=== PATIENT | female | born 1985 | race Caucasian/White ===

== ENCOUNTER 2016-10-23 15:03 | Emergency (ER) | payer OTHER ==
[~2016-10-23 15:03] MED LIST: CEFTIN500 MG PO; GABAPENTIN800 MG PO; LAMICTAL100 MG PO; NEURONTIN300 MG PO; NICOTINE T21 MG/24 H TOP; PERCOCET1 TA1 PO; SEROQUEL25 MG PO; ZITHROMAX500 MG PO
--- NOTE | 2016-10-23 15:33 | ED NURSING NOTES ---
Clinical Report - Nurses [facility] [address] [place] [address] 10/23/2016 15:04 Patient: MOSES GRISSOM TRIAGE Triage time 15:Oct 23 2016. Acuity: LEVEL 3. Chief Complaint: LEG PAIN (would like SW consult). Alert. No acute distress. SEPSIS SCREEN: Sepsis Screen. Negative (no infection suspected/documented). NESTOR COMA SCORE: Nestor Coma Scale: 15- eyes open spontaneously (4); best verbal response- oriented x 4 (5); best motor response- obeys commands (6). --15:23 Annetta Garcia R.N. 15:08 10/23/16. BP: 130/83. HR: 119. RR: 16. O2 saturation: 99%. Temp: 98.1 F. Pain level now: 11/14. --15:23 Annetta Garcia R.N. Weight: 62.5 kg stated. Height/Length: 59 inches Per Patient. BMI: 27.9. --15:22 Annetta Garcia R.N. Medications Adderall (15mg) Oral. Advair HFA Inhalation. Albuterol Sulfate Inhalation. Gabapentin Oral. LaMICtal Oral. --15:09 Annetta Garcia R.N. Allergies Abilify. Thorazine. --15:09 Annetta Garcia R.N. Antihistmines. --15:10 Annetta Garcia R.N. Antipsycotic medications. --15:10 Annetta Garcia R.N. History Arrived by EMS, and walking from home. Historian: patient. Treatment DISTRIBUTION CENTER ADMINISTRATOR: None. PAST MEDICAL HX: Immunizations: up-to-date. Last normal menstrual period was 2 weeks ago. Denies current . SOCIAL HX: Current every day heavy tobacco smoker (cigarette)- less than 1 pack per day. Occasional alcohol use. No drug use. No infectious disease exposure. SELF HARM ASSESSMENT: A self harm assessment was performed. The patient answered "no" to the question "Do you have thoughts of harming or killing yourself?". FALL RISK ASSESSMENT: Fall risk assessment completed. No fall risk identified. NUTRITIONAL RISK ASSESSMENT: The nutritional risk assessment revealed no deficiencies. FUNCTIONAL ASSESSMENT: Functional assessment: no impairments noted. LEARNING NEEDS ASSESSMENT: The learning needs assessment revealed no barriers. ABUSE ASSESSMENT: Abuse assessment: (pt states that she doesnt feel safe at home). ED physician notified. SKIN INTEGRITY ASSESSMENT: Skin integrity risk assessment completed. No skin integrity risk identified. --15:23 Annetta Garcia R.N. PROBLEMS: Sinus Tachycardia. Borderline personality disorder. ADHD - Attention Deficit Hyperactivity Disorder. Bipolar Disorder. Seizure. Pneumonia. Asthma. --15:10 Annetta Garcia R.N. ADDITIONAL SURGERIES: Ankle surgery. Tonsillectomy. --15:10 Annetta Garcia R.N. Interventions ID band on patient. To treatment room. --15:23 Annetta Garcia R.N. PHYSICAL ASSESSMENT Ambulatory to room. GENERAL / NEURO / PSYCH: Alert. Oriented X 4. Appears anxious. HEENT: No facial asymmetry noted. RESPIRATORY: Respirations not labored. GI / : Abdomen soft and nontender. SKIN: Skin is warm and dry. --15:24 Annetta Garcia R.N. NURSING PROGRESS NOTES Oxygen administered. Head of bed elevated. Reassurance given to the patient. Patient identifiers checked. Call light placed in reach. Side rails up x 1. Bed placed in lowest position. Brakes of bed on. --15:24 Annetta Garcia R.N. ( patient left ED notified Kan FLYNN and he indicated that we should leave her on the board a little bit and give her a chance to return.). --15:49 Annetta Garcia R.N. ( the SD exercise planner called back and stated that she will call [facility] and let them know the situation and see if she can reach her [place]ACK[place]ZIE social staff worker. DC exercise planner aware that the patient has left the hospital.). --15:56 Annetta Garcia R.N. ( patient returned to hospital and was sitting in waiting room . She agreed to return to ED until she gets her medication.). --16:18 Annetta Garcia R.N. 16:27 10/23/2016 Gabapentin PO Capsules 600 mg given. Allergies verified and confirmed 5 rights. --16:27 Annetta Garcia R.N. DISPOSITION / DISCHARGE Departure time: 16:40 Oct 23 2016. Condition at departure: unchanged. No learning barriers present. Discharge instructions provided and reviewed with the patient. Reviewed medication(s) side effects, precautions, dosing and course information. Prescription(s) given to the patient. Reviewed referral to a primary care physician. Patient verbalized understanding. Written instructions provided in Hungarian. The patient was discharged home. She left the Emergency Department ambulatory and via private vehicle. Patient driving. ( pt called [facility] for transportation home. pt advised that SW called [facility] and they are aware that she was here. pt advised to follow up with the SW from [facility]). FALL RISK ASSESSMENT: Fall risk assessment completed. No fall risk identified. --16:40 Annetta Garcia R.N. 16:41 10/23/16. BP: 124/73. HR: 119. RR: 16. O2 saturation: 98%. Pain level now: 6/10. Additional comments: notified Kan FLYNN of heart rate and he is OK with DC at this time. . --16:41 Annetta Garcia R.N. Locked/Released at 10/23/2016 17:05 by Annetta Garcia R.N.
--- NOTE | 2016-10-23 15:33 | ED ORDER SUMMARY ---
..... Patient: MOSES GRISSOM OrderSheet [facility] VisitID: [id number] [address] [place] [address] 31y, F Registration Date/Time: 10/23/2016 ORDER SHEET Weight: 62.5 kg (stated) Allergies: Abilify, Thorazine, Antihistmines, Antipsycotic medications GENERAL ORDERS: - (Please arrange for a mission planner. Thannk you.) (15:32 10/23/2016 JCoates) (15:42 Casa) MEDICATION ORDERS: - (Gabapentin 600 mg by mouth now. Thank you.) (15:24 10/23/2016 JCoates) (16:27 Halie Prasad) IV FLUIDS: ORDER SHEET NOTES: [Electronically signed by Annetta Garcia R.N. (17:05 10/23/2016)] [Electronically signed by Dru Champion (17:31 10/23/2016)] [Electronically locked/signed by Annetta Garcia R.N. (17:05 10/23/2016)]
--- NOTE | 2016-10-23 15:33 | ED NURSING NOTES ---
Clinical Report - Nurses [facility] [address] [place] [address] 10/23/2016 15:04 Patient: MOSES GRISSOM TRIAGE Triage time 15:Oct 23 2016. Acuity: LEVEL 3. Chief Complaint: LEG PAIN (would like SW consult). Alert. No acute distress. SEPSIS SCREEN: Sepsis Screen. Negative (no infection suspected/documented). NESTOR COMA SCORE: Nestor Coma Scale: 15- eyes open spontaneously (4); best verbal response- oriented x 4 (5); best motor response- obeys commands (6). --15:23 Annetta Garcia R.N. 15:08 10/23/16. BP: 130/83. HR: 119. RR: 16. O2 saturation: 99%. Temp: 98.1 F. Pain level now: 11/14. --15:23 Annetta Garcia R.N. Weight: 62.5 kg stated. Height/Length: 59 inches Per Patient. BMI: 27.9. --15:22 Annetta Garcia R.N. Medications Adderall (15mg) Oral. Advair HFA Inhalation. Albuterol Sulfate Inhalation. Gabapentin Oral. LaMICtal Oral. --15:09 Annetta Garcia R.N. Allergies Abilify. Thorazine. --15:09 Annetta Garcia R.N. Antihistmines. --15:10 Annetta Garcia R.N. Antipsycotic medications. --15:10 Annetta Garcia R.N. History Arrived by EMS, and walking from home. Historian: patient. Treatment GRAIN COMBINER: None. PAST MEDICAL HX: Immunizations: up-to-date. Last normal menstrual period was 2 weeks ago. Denies current . SOCIAL HX: Current every day heavy tobacco smoker (cigarette)- less than 1 pack per day. Occasional alcohol use. No drug use. No infectious disease exposure. SELF HARM ASSESSMENT: A self harm assessment was performed. The patient answered "no" to the question "Do you have thoughts of harming or killing yourself?". FALL RISK ASSESSMENT: Fall risk assessment completed. No fall risk identified. NUTRITIONAL RISK ASSESSMENT: The nutritional risk assessment revealed no deficiencies. FUNCTIONAL ASSESSMENT: Functional assessment: no impairments noted. LEARNING NEEDS ASSESSMENT: The learning needs assessment revealed no barriers. ABUSE ASSESSMENT: Abuse assessment: (pt states that she doesnt feel safe at home). ED physician notified. SKIN INTEGRITY ASSESSMENT: Skin integrity risk assessment completed. No skin integrity risk identified. --15:23 Annetta Garcia R.N. PROBLEMS: Sinus Tachycardia. Borderline personality disorder. ADHD - Attention Deficit Hyperactivity Disorder. Bipolar Disorder. Seizure. Pneumonia. Asthma. --15:10 Annetta Garcia R.N. ADDITIONAL SURGERIES: Ankle surgery. Tonsillectomy. --15:10 Annetta Garcia R.N. Interventions ID band on patient. To treatment room. --15:23 Annetta Garcia R.N. PHYSICAL ASSESSMENT Ambulatory to room. GENERAL / NEURO / PSYCH: Alert. Oriented X 4. Appears anxious. HEENT: No facial asymmetry noted. RESPIRATORY: Respirations not labored. GI / : Abdomen soft and nontender. SKIN: Skin is warm and dry. --15:24 Annetta Garcia R.N. NURSING PROGRESS NOTES Oxygen administered. Head of bed elevated. Reassurance given to the patient. Patient identifiers checked. Call light placed in reach. Side rails up x 1. Bed placed in lowest position. Brakes of bed on. --15:24 Annetta Garcia R.N. ( patient left ED notified Kan FLYNN and he indicated that we should leave her on the board a little bit and give her a chance to return.). --15:49 Annetta Garcia R.N. ( the ID order planner called back and stated that she will call [facility] and let them know the situation and see if she can reach her MACKENZIE manager social work. DC order planner aware that the patient has left the hospital.). --15:56 Annetta Garcia R.N. ( patient returned to hospital and was sitting in waiting room . She agreed to return to ED until she gets her medication.). --16:18 Annetta Garcia R.N. 16:27 10/23/2016 Gabapentin PO Capsules 600 mg given. Allergies verified and confirmed 5 rights. --16:27 Annetta Garcia R.N. DISPOSITION / DISCHARGE Departure time: 16:40 Oct 23 2016. Condition at departure: unchanged. No learning barriers present. Discharge instructions provided and reviewed with the patient. Reviewed medication(s) side effects, precautions, dosing and course information. Prescription(s) given to the patient. Reviewed referral to a primary care physician. Patient verbalized understanding. Written instructions provided in Khmer. The patient was discharged home. She left the Emergency Department ambulatory and via private vehicle. Patient driving. ( pt called [facility] for transportation home. pt advised that SW called [facility] and they are aware that she was here. pt advised to follow up with the SW from [facility]). FALL RISK ASSESSMENT: Fall risk assessment completed. No fall risk identified. --16:40 Annetta Garcia R.N. 16:41 10/23/16. BP: 124/73. HR: 119. RR: 16. O2 saturation: 98%. Pain level now: 6/10. Additional comments: notified Kan FLYNN of heart rate and he is OK with DC at this time. . --16:41 Annetta Garcia R.N. Locked/Released at 10/23/2016 17:05 by Annetta Garcia R.N.
--- NOTE | 2016-10-23 15:33 | ED CLINICAL REPORT ---
Clinical Report - Physicians/Mid Levels [facility] [address] [place] [address] 10/23/2016 15:04 Patient: MOSES GRISSOM Time Seen: 15:09 Oct 23 2016. Arrived- By ambulance. Historian- patient. HISTORY OF PRESENT ILLNESS Chief Complaint: Chronic right lower leg pain and numbness. This started about 2 years ago and is still present. The patient has had numbness, (Patient has a history of chronic bipolar disorder. Apparently she is well known to the paramedics as she frequently calls them. They were called to her house today and they brought her here and she seemed to be acting more bizarrely than usual. She says she has a long history of right lower leg pain and numbness. She apparently broke her ankle and had surgery 2 years ago and since then has had chronic pain. She takes gabapentin and lamotrigine as well as Adderall. She says she just got out of the hospital somewhere else and hasn't had her gabapentin, lamotrigine or Adderall for several days and she is anxious. She denies any suicidal or homicidal ideation. She denies any hallucinations at this time.). No weakness. Similar symptoms previously: Many times. Recent medical care: The patient was seen recently at another facility in the emergency department. REVIEW OF SYSTEMS No nausea, vomiting, skin rash or suicidal thoughts. She complains of pain on weight bearing and has had a sleep disorder. All systems otherwise negative, except as recorded above. PAST HISTORY See nurses notes. No history of diabetes mellitus. SOCIAL HISTORY Smoker- current status unknown. Alcohol use. No drug use. ADDITIONAL NOTES The nursing notes have been reviewed. PHYSICAL EXAM Appearance: Alert. No acute distress. Does not appear to be lethargic. Odor of alcohol is not present. Head: Head atraumatic. Neck: Normal inspection. Respiratory: No respiratory distress. Extremities: Extremities exhibit normal ROM. No lower extremity edema. Right leg: mild erythema and tenderness. Neurovascular intact distally. (Mild dry skin and erythema but no evidence of cellulitis, DVT or acute trauma. She has pain out of proportion to anywhere I touch. If distracted she does not feel pain.). No swelling, laceration, abrasion or ecchymosis. No lower extremity edema. Neuro: Alert. Verbal response is not abnormal. No motor deficit. No sensory deficit. Psych: Flat affect. Speech normal. No apparent hallucinations. PROGRESS AND PROCEDURES Course of Care: 16:01 10/23/16. Patient stable. She denies suicidal or homicidal ideation at this time. She denies hallucinations. I cannot say that she is an absolute threat to herself or anyone else at this time so no indication for involuntary admit. I agreed to give her a single dose of gabapentin now and then discharge her home. I would not refill her Adderall. I went to print out taper work and she apparently left the emergency department prior to getting discharge paperwork or her dose of gabapentin. Disposition: Condition: stable. Discharge decision based on the following: patient's condition is stable; patient is ambulatory; patient's exam is stable. CLINICAL IMPRESSION Chronic right lower leg pain. Chronic bipolar disorder. INSTRUCTIONS Rest at home today. No dietary restrictions. Warnings: Further evaluation is necessary in order to conduct further tests. It is very important to follow up with a physician. GENERAL WARNINGS: Return or contact your physician immediately if your condition worsens or changes unexpectedly, if not improving as expected, or if other problems arise. Specifically return if fever greater than 102 degrees F. Suicidal or homicidal ideation. Prescription Medications: Lamotrigine 200 mg tabs. Dispense five (5). No refills. (T 1 tab PO at bedtime.) Gabapentin 300 mg capsules. Dispense forty-five (45). No refill. (Take 600mg PO in the morning and the afternoon and take 900mg PO at bedtime.) Understanding of the discharge instructions verbalized by patient. Follow-up with: Follow up Wednesday in three days. Reason for referral: Follow up with [facility] on Wednesday as we discussed. (Electronically signed by Dru Champion, 10/23/2016 17:31)
--- NOTE | 2016-10-23 15:33 | ED ORDER SUMMARY ---
..... Patient: MOSES GRISSOM OrderSheet [facility] VisitID: [id number] [address] [place] [address] 31y, F Registration Date/Time: 10/23/2016 ORDER SHEET Weight: 62.5 kg (stated) Allergies: Abilify, Thorazine, Antihistmines, Antipsycotic medications GENERAL ORDERS: - (Please arrange for a flow floor attendant. Thannk you.) (15:32 10/23/2016 JCoates) (15:42 Casa) MEDICATION ORDERS: - (Gabapentin 600 mg by mouth now. Thank you.) (15:24 10/23/2016 JCoates) (16:27 Halie Prasad) IV FLUIDS: ORDER SHEET NOTES: [Electronically signed by Annetta Garcia R.N. (17:05 10/23/2016)] [Electronically signed by Dru Champion (17:31 10/23/2016)] [Electronically locked/signed by Annetta Garcia R.N. (17:05 10/23/2016)]
--- NOTE | 2016-10-23 15:33 | ED CLINICAL REPORT ---
Clinical Report - Physicians/Mid Levels [facility] [address] [place] [address] 10/23/2016 15:04 Patient: MOSES GRISSOM Time Seen: 15:09 Oct 23 2016. Arrived- By ambulance. Historian- patient. HISTORY OF PRESENT ILLNESS Chief Complaint: Chronic right lower leg pain and numbness. This started about 2 years ago and is still present. The patient has had numbness, (Patient has a history of chronic bipolar disorder. Apparently she is well known to the paramedics as she frequently calls them. They were called to her house today and they brought her here and she seemed to be acting more bizarrely than usual. She says she has a long history of right lower leg pain and numbness. She apparently broke her ankle and had surgery 2 years ago and since then has had chronic pain. She takes gabapentin and lamotrigine as well as Adderall. She says she just got out of the hospital somewhere else and hasn't had her gabapentin, lamotrigine or Adderall for several days and she is anxious. She denies any suicidal or homicidal ideation. She denies any hallucinations at this time.). No weakness. Similar symptoms previously: Many times. Recent medical care: The patient was seen recently at another facility in the emergency department. REVIEW OF SYSTEMS No nausea, vomiting, skin rash or suicidal thoughts. She complains of pain on weight bearing and has had a sleep disorder. All systems otherwise negative, except as recorded above. PAST HISTORY See nurses notes. No history of diabetes mellitus. SOCIAL HISTORY Smoker- current status unknown. Alcohol use. No drug use. ADDITIONAL NOTES The nursing notes have been reviewed. PHYSICAL EXAM Appearance: Alert. No acute distress. Does not appear to be lethargic. Odor of alcohol is not present. Head: Head atraumatic. Neck: Normal inspection. Respiratory: No respiratory distress. Extremities: Extremities exhibit normal ROM. No lower extremity edema. Right leg: mild erythema and tenderness. Neurovascular intact distally. (Mild dry skin and erythema but no evidence of cellulitis, DVT or acute trauma. She has pain out of proportion to anywhere I touch. If distracted she does not feel pain.). No swelling, laceration, abrasion or ecchymosis. No lower extremity edema. Neuro: Alert. Verbal response is not abnormal. No motor deficit. No sensory deficit. Psych: Flat affect. Speech normal. No apparent hallucinations. PROGRESS AND PROCEDURES Course of Care: 16:01 10/23/16. Patient stable. She denies suicidal or homicidal ideation at this time. She denies hallucinations. I cannot say that she is an absolute threat to herself or anyone else at this time so no indication for involuntary admit. I agreed to give her a single dose of gabapentin now and then discharge her home. I would not refill her Adderall. I went to print out taper work and she apparently left the emergency department prior to getting discharge paperwork or her dose of gabapentin. Disposition: Condition: stable. Discharge decision based on the following: patient's condition is stable; patient is ambulatory; patient's exam is stable. CLINICAL IMPRESSION Chronic right lower leg pain. Chronic bipolar disorder. INSTRUCTIONS Rest at home today. No dietary restrictions. Warnings: Further evaluation is necessary in order to conduct further tests. It is very important to follow up with a physician. GENERAL WARNINGS: Return or contact your physician immediately if your condition worsens or changes unexpectedly, if not improving as expected, or if other problems arise. Specifically return if fever greater than 102 degrees F. Suicidal or homicidal ideation. Prescription Medications: Lamotrigine 200 mg tabs. Dispense five (5). No refills. (T 1 tab PO at bedtime.) Gabapentin 300 mg capsules. Dispense forty-five (45). No refill. (Take 600mg PO in the morning and the afternoon and take 900mg PO at bedtime.) Understanding of the discharge instructions verbalized by patient. Follow-up with: Follow up Wednesday in three days. Reason for referral: Follow up with [facility] on Wednesday as we discussed. (Electronically signed by Dru Champion, 10/23/2016 17:31)
--- NOTE | 2016-10-23 17:31 | ED DISCHARGE INSTRUCTIONS ---
Patient: MOSES GRISSOM General Instructions [facility] VisitID: [id number] [place] [address] 31y, F Registration Date/Time: 10/23/2016 Chronic right lower leg pain. Chronic bipolar disorder. INSTRUCTIONS Rest at home today. No dietary restrictions. Warnings: Further evaluation is necessary in order to conduct further tests. It is very important to follow up with a physician. GENERAL WARNINGS: Return or contact your physician immediately if your condition worsens or changes unexpectedly, if not improving as expected, or if other problems arise. Specifically return if fever greater than 102 degrees F. Suicidal or homicidal ideation. Prescription Medications: Lamotrigine 200 mg tabs. Dispense five (5). No refills. (T 1 tab PO at bedtime.) Gabapentin 300 mg capsules. Dispense forty-five (45). No refill. (Take 600mg PO in the morning and the afternoon and take 900mg PO at bedtime.) Understanding of the discharge instructions verbalized by patient. Follow-up with: Follow up Wednesday in three days. Reason for referral: Follow up with [facility] on Wednesday as we discussed. ADDITIONAL INFORMATION Bipolar Disorder Bipolar disorder (formerly called manic depression) is an illness that causes strong mood swings between depression and jo. This can interfere with work and relationships. In a manic episode, you may think fast and do things quickly. It may seem like you are getting a lot done. At first, this may feel very good; but in the extreme this can lead to a lifestyle that is disorganized, chaotic, and includes risky behavior (spending sprees, sexual acting-out, or drug use). In later stages, it may affect eating (no interest in food) and sleeping (unable to sleep for days at a time). Speech may speed up and become difficult for others to understand. You may appear to others as if you are in your own world. In a depressive episode, you may feel a lack of interest in normal activities. Sometimes there is sadness or guilt without any clear reason. Thinking may become slow and there can be a lack energy or feeling of hopelessness. Some people have thoughts of harming themselves at this stage. Thoughts can even turn to suicide. Between these two phases you may actually feel okay. This does not mean that the illness is gone. People with this disorder will usually have to treat it all of their life. Medication and good care can greatly reduce the symptoms. The exact cause of this illness is unknown. However, there is a genetic link that makes a person more likely to get this problem. Also, the use of drugs such as speed (amphetamine) and cocaine increase the chances of this illness appearing. Home Care: Be sure to take your medicine even if you think you dont need it. Talk with your family about your thoughts and feelings. Follow Up with your doctor or therapist as directed by our staff. They can help you to find ways to improve your life. For more information: The [employer] [employer]ness www.alicia.org 672-636-7711. Get Prompt Medical Attention if any of the following occur: Feeling like your symptoms are getting worse (depression, agitation, excess energy) Unable to eat or sleep for more than 48 hours Feeling out of control (racing thoughts, poor concentration) Feeling like you want to harm yourself or another Being unable to care for yourself Myofascial Pain Syndrome: Fibrositis Your pain is caused by a state of chronic muscle tension. This condition is called by various names: myofascial pain, fibrositis and trigger point pain. This can also be due to mechanical stress (such as working at a computer terminal for long periods; or work that requires repetitive motions of the arms or hands) or emotional stress (such as problems on the job or in your personal life). Sometimes there is no obvious cause. The pain can occur in the area of the muscle spasm or at a site distant to it. For example, spasm of a neck muscle can cause headache. Spasm of the muscle near the shoulder blade can cause pain shooting down the arm. Home Care: Try to identify the factors that may be causing your problem and change them: If you feel thatemotional stressis a cause of your pain, learn methods to deal more effectively with the stress in your life. These may include regular exercise, muscle relaxation techniques, meditation or simply taking time out for yourself. Consult your doctor or go to a local bookstore and review the many books and tapes available on the subject of stress reduction. If you feel that physical stress is a cause for your pain, try to modify any poor work habits. You may use acetaminophen (Tylenol) or ibuprofen (Motrin, Advil) to control pain, unless another medicine was prescribed. [NOTE: If you have chronic liver or kidney disease or ever had a stomach ulcer or GI bleeding, talk with your doctor before using these medicines.] The use of heat to the muscle (hot compress or heating pad) will be helpful to reduce muscle spasm. Some persons get relief with ice packs. Apply an ice pack (crushed or cubed ice in a plastic bag, wrapped in a towel) for 20 minutes at a time as needed. Use the method that feels best to you. Massaging the trigger point and stretching out the muscleare an important parts of prevention and treatment. Trigger point massage can be done by first applying heat to the area to warm and prepare the muscle. Have someone apply steady thumb pressure directly on the knot in the muscle (the most tender point) for 30 seconds. Release the pressure, then massage the surrounding muscle. Repeat the process, applying more pressure to the trigger point each time. Do this up to the limit of pain. With each treatment, the trigger point should become less tender and the pain should decrease. You can apply local pressure to trigger points in the back by lying on the floor with a tennis ball under the trigger point. Follow Up with your doctor as advised or if not improving within the next week. It may be necessary for you to receive physical therapy if you do not respond to home treatment alone. Get Prompt Medical Attention if any of the following occur: If your trigger point is in the chest muscles, observe for pain that becomes more severe, lasts longer, or spreads into your shoulder/arm, neck or back; you develop trouble breathing, sweating, nausea or vomiting in association with chest pain If you develop weakness or numbness in an extremity If your pain worsens, regardless of its location Gabapentin Oral tablet What is this medicine? GABAPENTIN (GA ba pen tin) is used to control partial seizures in adults with epilepsy. It is also used to treat certain types of nerve pain. How should I use this medicine? Take this medicine by mouth. Swallow it with a drink of water. Follow the directions on the prescription label. If this medicine upsets your stomach, take it with food or milk. Take your medicine at regular intervals. Do not take it more often than directed. If you are directed to break the 600 or 800 mg tablets in half as part of your dose, the extra half tablet should be used for the next dose. If you have not used the extra half tablet within 3 days, it should be thrown away. A special MedGuide will be given to you by the pharmacist with each prescription and refill. Be sure to read this information carefully each time. Talk to your lamination builder regarding the use of this medicine in children. Special care may be needed. What side effects may I notice from receiving this medicine? Side effects that you should report to your doctor or health ambulatory care coordinator as soon as possible: allergic reactions like skin rash, itching or hives, swelling of the face, lips, or tongue worsening of mood, thoughts or actions of suicide or dying Side effects that usually do not require medical attention (report to your doctor or health ambulatory care coordinator if they continue or are bothersome): constipation difficulty walking or controlling muscle movements dizziness nausea slurred speech tiredness tremors weight gain What may interact with this medicine? Do not take this medicine with any of the following medications: other gabapentin products This medicine may also interact with the following medications: alcohol antacids antihistamines for allergy, cough and cold certain medicines for anxiety or sleep certain medicines for depression or psychotic disturbances homatropine; hydrocodone naproxen narcotic medicines (opiates) for pain phenothiazines like chlorpromazine, mesoridazine, prochlorperazine, thioridazine What if I miss a dose? If you miss a dose, take it as soon as you can. If it is almost time for your next dose, take only that dose. Do not take double or extra doses. Where should I keep my medicine? Keep out of reach of children. Store at room temperature between 15 and 30 degrees C (59 and 86 degrees F). Throw away any unused medicine after the expiration date. What should I tell my health care provider before I take this medicine? They need to know if you have any of these conditions: kidney disease suicidal thoughts, plans, or attempt; a previous suicide attempt by you or a family member an unusual or allergic reaction to gabapentin, other medicines, foods, dyes, or preservatives or trying to get breast-feeding What should I watch for while using this medicine? Visit your doctor or health ambulatory care coordinator for regular checks on your progress. You may want to keep a record at home of how you feel your condition is responding to treatment. You may want to share this information with your doctor or health ambulatory care coordinator at each visit. You should contact your doctor or health ambulatory care coordinator if your seizures get worse or if you have any new types of seizures. Do not stop taking this medicine or any of your seizure medicines unless instructed by your doctor or health ambulatory care coordinator. Stopping your medicine suddenly can increase your seizures or their severity. Wear a medical identification bracelet or chain if you are taking this medicine for seizures, and carry a card that lists all your medications. You may get drowsy, dizzy, or have blurred vision. Do not drive, use machinery, or do anything that needs mental alertness until you know how this medicine affects you. To reduce dizzy or fainting spells, do not sit or stand up quickly, especially if you are an older patient. Alcohol can increase drowsiness and dizziness. Avoid alcoholic drinks. Your mouth may get dry. Chewing sugarless gum or sucking hard candy, and drinking plenty of water will help. The use of this medicine may increase the chance of suicidal thoughts or actions. Pay special attention to how you are responding while on this medicine. Any worsening of mood, or thoughts of suicide or dying should be reported to your health ambulatory care coordinator right away. Women who become while using this medicine may enroll in the [place] [employer] Registry by calling . This registry collects information about the safety of antiepileptic drug use during . You have been given the following additional information: Bipolar Disorder Myofascial Pain Syndrome Gabapentin Oral tablet Rest at home today. (Electronically signed by Dru Champion, 10/23/2016 17:31)
--- NOTE | 2016-10-23 17:31 | ED MAR SUMMARY ---
..... Medication Administration Record [facility] [address] [place] [address] Patient: MOSES GRISSOM Visit ID: [id number] 31y, F Weight: 62.5 kg Height/Length: 59 in BMI: 27.9 ALLERGIES: Antipsycotic medications, Antihistmines, Abilify, Thorazine Given 16:27 10/23/2016 Annetta Garcia R.N. Medication Administered: GABAPENTIN [PO], Dose: 600 mg Capsules PO. Medication Ordered: - (Gabapentin 600 mg by mouth now. Thank you.).
--- NOTE | 2016-10-23 17:31 | ED MED RECONCILIATION SUMMARY ---
Patient: MOSES GRISSOM Medication Reconciliation Report [facility] VisitID: [id number] [address] [place] [address] 31y, F Registration Date/Time: 10/23/2016 Weight: 62.5 kg Height/Length: 59 in. BMI: 27.9 ALLERGIES: Abilify, Antihistmines, Antipsycotic medications, Thorazine The patient's Home Medications are listed below: THE FOLLOWING MEDICATIONS NEED TO BE RECONCILED: Adderall (15mg) Oral Advair HFA Inhalation Albuterol Sulfate Inhalation Gabapentin Oral LaMICtal Oral The source(s) of the original Home Medication information: Not obtained. The following Medications were given to the patient in the Emergency Department: Gabapentin [PO] PO 600 mg, administered: 10/23/2016 4:27:00 PM The following Medications were prescribed to the patient: Lamotrigine 200 mg tabs. Dispense five (5). No refills.(T 1 tab PO at bedtime.) -- Dru Champion Gabapentin 300 mg capsules. Dispense forty-five (45). No refill.(Take 600mg PO in the morning and the afternoon and take 900mg PO at bedtime.) -- Dru Champion
--- NOTE | 2016-10-23 17:31 | ED MED RECONCILIATION SUMMARY ---
Patient: MOSES GRISSOM Medication Reconciliation Report [facility] VisitID: [id number] [address] [place] [address] 31y, F Registration Date/Time: 10/23/2016 Weight: 62.5 kg Height/Length: 59 in. BMI: 27.9 ALLERGIES: Abilify, Antihistmines, Antipsycotic medications, Thorazine The patient's Home Medications are listed below: THE FOLLOWING MEDICATIONS NEED TO BE RECONCILED: Adderall (15mg) Oral Advair HFA Inhalation Albuterol Sulfate Inhalation Gabapentin Oral LaMICtal Oral The source(s) of the original Home Medication information: Not obtained. The following Medications were given to the patient in the Emergency Department: Gabapentin [PO] PO 600 mg, administered: 10/23/2016 4:27:00 PM The following Medications were prescribed to the patient: Lamotrigine 200 mg tabs. Dispense five (5). No refills.(T 1 tab PO at bedtime.) -- Dru Champion Gabapentin 300 mg capsules. Dispense forty-five (45). No refill.(Take 600mg PO in the morning and the afternoon and take 900mg PO at bedtime.) -- Dru Champion
--- NOTE | 2016-10-23 17:31 | ED DISCHARGE INSTRUCTIONS ---
Patient: MOSES GRISSOM General Instructions [facility] VisitID: [id number] [place] [address] 31y, F Registration Date/Time: 10/23/2016 Chronic right lower leg pain. Chronic bipolar disorder. INSTRUCTIONS Rest at home today. No dietary restrictions. Warnings: Further evaluation is necessary in order to conduct further tests. It is very important to follow up with a physician. GENERAL WARNINGS: Return or contact your physician immediately if your condition worsens or changes unexpectedly, if not improving as expected, or if other problems arise. Specifically return if fever greater than 102 degrees F. Suicidal or homicidal ideation. Prescription Medications: Lamotrigine 200 mg tabs. Dispense five (5). No refills. (T 1 tab PO at bedtime.) Gabapentin 300 mg capsules. Dispense forty-five (45). No refill. (Take 600mg PO in the morning and the afternoon and take 900mg PO at bedtime.) Understanding of the discharge instructions verbalized by patient. Follow-up with: Follow up Wednesday in three days. Reason for referral: Follow up with [facility] on Wednesday as we discussed. ADDITIONAL INFORMATION Bipolar Disorder Bipolar disorder (formerly called manic depression) is an illness that causes strong mood swings between depression and jo. This can interfere with work and relationships. In a manic episode, you may think fast and do things quickly. It may seem like you are getting a lot done. At first, this may feel very good; but in the extreme this can lead to a lifestyle that is disorganized, chaotic, and includes risky behavior (spending sprees, sexual acting-out, or drug use). In later stages, it may affect eating (no interest in food) and sleeping (unable to sleep for days at a time). Speech may speed up and become difficult for others to understand. You may appear to others as if you are in your own world. In a depressive episode, you may feel a lack of interest in normal activities. Sometimes there is sadness or guilt without any clear reason. Thinking may become slow and there can be a lack energy or feeling of hopelessness. Some people have thoughts of harming themselves at this stage. Thoughts can even turn to suicide. Between these two phases you may actually feel okay. This does not mean that the illness is gone. People with this disorder will usually have to treat it all of their life. Medication and good care can greatly reduce the symptoms. The exact cause of this illness is unknown. However, there is a genetic link that makes a person more likely to get this problem. Also, the use of drugs such as speed (amphetamine) and cocaine increase the chances of this illness appearing. Home Care: Be sure to take your medicine even if you think you dont need it. Talk with your family about your thoughts and feelings. Follow Up with your doctor or therapist as directed by our staff. They can help you to find ways to improve your life. For more information: The National [employer] on Mental Illness www.alicia.org 734-359-0926. Get Prompt Medical Attention if any of the following occur: Feeling like your symptoms are getting worse (depression, agitation, excess energy) Unable to eat or sleep for more than 48 hours Feeling out of control (racing thoughts, poor concentration) Feeling like you want to harm yourself or another Being unable to care for yourself Myofascial Pain Syndrome: Fibrositis Your pain is caused by a state of chronic muscle tension. This condition is called by various names: myofascial pain, fibrositis and trigger point pain. This can also be due to mechanical stress (such as working at a computer terminal for long periods; or work that requires repetitive motions of the arms or hands) or emotional stress (such as problems on the job or in your personal life). Sometimes there is no obvious cause. The pain can occur in the area of the muscle spasm or at a site distant to it. For example, spasm of a neck muscle can cause headache. Spasm of the muscle near the shoulder blade can cause pain shooting down the arm. Home Care: Try to identify the factors that may be causing your problem and change them: If you feel thatemotional stressis a cause of your pain, learn methods to deal more effectively with the stress in your life. These may include regular exercise, muscle relaxation techniques, meditation or simply taking time out for yourself. Consult your doctor or go to a local bookstore and review the many books and tapes available on the subject of stress reduction. If you feel that physical stress is a cause for your pain, try to modify any poor work habits. You may use acetaminophen (Tylenol) or ibuprofen (Motrin, Advil) to control pain, unless another medicine was prescribed. [NOTE: If you have chronic liver or kidney disease or ever had a stomach ulcer or GI bleeding, talk with your doctor before using these medicines.] The use of heat to the muscle (hot compress or heating pad) will be helpful to reduce muscle spasm. Some persons get relief with ice packs. Apply an ice pack (crushed or cubed ice in a plastic bag, wrapped in a towel) for 20 minutes at a time as needed. Use the method that feels best to you. Massaging the trigger point and stretching out the muscleare an important parts of prevention and treatment. Trigger point massage can be done by first applying heat to the area to warm and prepare the muscle. Have someone apply steady thumb pressure directly on the knot in the muscle (the most tender point) for 30 seconds. Release the pressure, then massage the surrounding muscle. Repeat the process, applying more pressure to the trigger point each time. Do this up to the limit of pain. With each treatment, the trigger point should become less tender and the pain should decrease. You can apply local pressure to trigger points in the back by lying on the floor with a tennis ball under the trigger point. Follow Up with your doctor as advised or if not improving within the next week. It may be necessary for you to receive physical therapy if you do not respond to home treatment alone. Get Prompt Medical Attention if any of the following occur: If your trigger point is in the chest muscles, observe for pain that becomes more severe, lasts longer, or spreads into your shoulder/arm, neck or back; you develop trouble breathing, sweating, nausea or vomiting in association with chest pain If you develop weakness or numbness in an extremity If your pain worsens, regardless of its location Gabapentin Oral tablet What is this medicine? GABAPENTIN (GA ba pen tin) is used to control partial seizures in adults with epilepsy. It is also used to treat certain types of nerve pain. How should I use this medicine? Take this medicine by mouth. Swallow it with a drink of water. Follow the directions on the prescription label. If this medicine upsets your stomach, take it with food or milk. Take your medicine at regular intervals. Do not take it more often than directed. If you are directed to break the 600 or 800 mg tablets in half as part of your dose, the extra half tablet should be used for the next dose. If you have not used the extra half tablet within 3 days, it should be thrown away. A special MedGuide will be given to you by the pharmacist with each prescription and refill. Be sure to read this information carefully each time. Talk to your executive sales manager regarding the use of this medicine in children. Special care may be needed. What side effects may I notice from receiving this medicine? Side effects that you should report to your doctor or health intensive care unit registered nurse as soon as possible: allergic reactions like skin rash, itching or hives, swelling of the face, lips, or tongue worsening of mood, thoughts or actions of suicide or dying Side effects that usually do not require medical attention (report to your doctor or health intensive care unit registered nurse if they continue or are bothersome): constipation difficulty walking or controlling muscle movements dizziness nausea slurred speech tiredness tremors weight gain What may interact with this medicine? Do not take this medicine with any of the following medications: other gabapentin products This medicine may also interact with the following medications: alcohol antacids antihistamines for allergy, cough and cold certain medicines for anxiety or sleep certain medicines for depression or psychotic disturbances homatropine; hydrocodone naproxen narcotic medicines (opiates) for pain phenothiazines like chlorpromazine, mesoridazine, prochlorperazine, thioridazine What if I miss a dose? If you miss a dose, take it as soon as you can. If it is almost time for your next dose, take only that dose. Do not take double or extra doses. Where should I keep my medicine? Keep out of reach of children. Store at room temperature between 15 and 30 degrees C (59 and 86 degrees F). Throw away any unused medicine after the expiration date. What should I tell my health care provider before I take this medicine? They need to know if you have any of these conditions: kidney disease suicidal thoughts, plans, or attempt; a previous suicide attempt by you or a family member an unusual or allergic reaction to gabapentin, other medicines, foods, dyes, or preservatives or trying to get breast-feeding What should I watch for while using this medicine? Visit your doctor or health intensive care unit registered nurse for regular checks on your progress. You may want to keep a record at home of how you feel your condition is responding to treatment. You may want to share this information with your doctor or health intensive care unit registered nurse at each visit. You should contact your doctor or health intensive care unit registered nurse if your seizures get worse or if you have any new types of seizures. Do not stop taking this medicine or any of your seizure medicines unless instructed by your doctor or health intensive care unit registered nurse. Stopping your medicine suddenly can increase your seizures or their severity. Wear a medical identification bracelet or chain if you are taking this medicine for seizures, and carry a card that lists all your medications. You may get drowsy, dizzy, or have blurred vision. Do not drive, use machinery, or do anything that needs mental alertness until you know how this medicine affects you. To reduce dizzy or fainting spells, do not sit or stand up quickly, especially if you are an older patient. Alcohol can increase drowsiness and dizziness. Avoid alcoholic drinks. Your mouth may get dry. Chewing sugarless gum or sucking hard candy, and drinking plenty of water will help. The use of this medicine may increase the chance of suicidal thoughts or actions. Pay special attention to how you are responding while on this medicine. Any worsening of mood, or thoughts of suicide or dying should be reported to your health intensive care unit registered nurse right away. Women who become while using this medicine may enroll in the [place] Drug Registry by calling . This registry collects information about the safety of antiepileptic drug use during . You have been given the following additional information: Bipolar Disorder Myofascial Pain Syndrome Gabapentin Oral tablet Rest at home today. (Electronically signed by Dru Champion, 10/23/2016 17:31)
--- NOTE | 2016-10-23 17:31 | ED MAR SUMMARY ---
..... Medication Administration Record [facility] [address] [place] [address] Patient: MOSES GRISSOM Visit ID: [id number] 31y, F Weight: 62.5 kg Height/Length: 59 in BMI: 27.9 ALLERGIES: Antipsycotic medications, Antihistmines, Abilify, Thorazine Given 16:27 10/23/2016 Annetta Garcia R.N. Medication Administered: GABAPENTIN [PO], Dose: 600 mg Capsules PO. Medication Ordered: - (Gabapentin 600 mg by mouth now. Thank you.).
== END 2016-10-23 16:42 | disposition home or self-care (01) ==
LOC: ED SRH 15:03
DX: M79.604 Pain in right leg (principal); G89.29 Other chronic pain; F31.9 Bipolar disorder, unspecified; Z88.8 Allergy status to other drugs, medicaments and biological substances

== ENCOUNTER 2016-12-02 19:48 | Emergency (ER) | payer OTHER ==
--- NOTE | 2016-12-03 15:07 | ED CLINICAL REPORT ---
Clinical Report - Physicians/Mid Levels [facility] [address] [place] [address] 12/02/2016 19:50 Patient: MOSES GRISSOM Time Seen: 20:07 Dec 02 2016. Arrived- By private vehicle. Not in custody. Historian- patient. CPT: ER phys charges level 5 (#[id number]). HISTORY OF PRESENT ILLNESS Chief Complaint: SUICIDAL ATTEMPT and (desire to be struck by a moving vehicle on the road.). This started just prior to arrival. No situational problems. (Patient earlier this afternoon departed in a steady gait to the wait room on her own accord, after denying to my self and RN about no SI/HI. She was in the lobby and we phoned her mom as well as transport for home, she was on the phone with such for 30 min then decided to walk out into the cross walk and stand, and was found by another RN off shift, stating she wanted to get hit by a car. She eloped prior to her complete lab work up, however was found to have negative cbc/ us. After her leave etoh returned and she is intoxicated.). Has had suicidal thoughts but been sleeping or not been depressed. The symptoms are described as moderate. REVIEW OF SYSTEMS No headache, chest pain, vomiting, diarrhea or fever. No sore throat or cough. All systems otherwise negative, except as recorded above. PAST HISTORY Medications: LaMICtal Oral. Adderall (15mg) Oral. Advair HFA Inhalation. Albuterol Sulfate Inhalation. Gabapentin Oral. Allergies: Abilify. Antihistmines. Antipsycotic medications. Thorazine. SOCIAL HISTORY Former smoker. Alcohol use. History of drug use: marijuana. Has place to stay. ADDITIONAL NOTES The nursing notes have been reviewed. PHYSICAL EXAM Vital Signs: 12/02/2016 19:50 BP: 162/100. HR: 142. RR: 28. O2 saturation: 99%. Temp: 97.7 F. Appearance: Alert. No acute distress. Appearance is normal. No apparent distress. Eyes: Pupils equal, round and reactive to light. Neck: Normal inspection. No lymphadenopathy. CVS: Normal heart rate and rhythm. Heart sounds normal. Respiratory: Breath sounds normal. Chest nontender. Abdomen: Soft. Back: No tenderness. Skin: Skin warm. Normal skin color. Extremities: Extremities exhibit normal ROM. Psych / Neuro: Speech normal. Cognition normal. Thought process normal. She expresses suicidal thoughts and a specific plan. Cranial nerves normal (as tested). No cerebellar findings. Normal gait. No motor deficit. No sensory deficit. Reflexes normal. LABS, X-RAYS, AND EKG Laboratory Tests: Urine Drug Screen: (KEON: 12/02/2016 18:32) ( MsgRcvd 12/02/2016 21:08) Final results Test Result Flag Units (Reference) AMPHETAMINE/METHAMPHETAMINE NEGATIVE (NEGATIVE) BARBITURATE NEGATIVE (NEGATIVE) BENZODIAZEPINE NEGATIVE (NEGATIVE) CANNABINOID NEGATIVE (NEGATIVE) COCAINE NEGATIVE (NEGATIVE) ECSTASY NEGATIVE (NEGATIVE) METHADONE NEGATIVE (NEGATIVE) OPIATE NEGATIVE (NEGATIVE) The urine drug screen is a qualitative screening test fordrug overdose and abuse. All screen results should beconsidered as presumptive.Drugs screened for are as follows:BenzodiazepinesCocaineAmphetamines/MetamphetaminesTHC (Tetrahydrocannabinol)OpiatesBarbituratesEcstasyMethadonePositive results are unconfirmed. For confirmation, notifythe lab for the specimen to be sent to the reference lab.All confirmations must be performed by a differentmethodology.The ingestion of natural herbal and plant productscontaining Ephedra/Ephedra metabolites can produce in urineone or more substances capable of cross reacting withamphetamine/methamphetamine immunoassays. These testsprovide a preliminary result only. A more specificalternative chemical method must be used to obtain aconfirmed analytical result. Ethyl Alcohol: (KEON: 12/02/2016 20:55) ( MsgRcvd 12/02/2016 21:26) Final results Test Result Flag Units (Reference) ETHYL ALCOHOL 179 H mg/dL (3-10) . PROGRESS AND PROCEDURES Course of Care: Pt tearful, at times anxious, she does not want to be home with the bugs, and at this time was in the road desiring to be struck by car, police did arrive and escorted her to the room and signed involuntary papers for her. She was placed in restraints as she desired to leave, and was unable to be cooperative. She is intoxicated, will await for her to sober. Previous labs completed on her earlier visit in the day. End of shift care transferred to DR. Stoll 23:00 ESW has bed at 2100 at [facility] today. Assumed care at [address] Stoll and observed the patient during my shift. Pt was cooperative and at times anxious and required two doses of ativan 1 mg po. [facility] has called and delayed transport from 2100 to 0 and now 2229. Pt is stable . She is no longer intoxicated. Patient is stable. Patient/family counseled. [facility] 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 No psychosis induced by the abuse of methamphetamines or cannabis. Suicide attempt. Substance abuse problems: abuse of alcohol. Suicide attempt. (Electronically signed by Rodolfo Pinedo MD 12/04/2016 11:41) Addenda for YULI GRISSOMILLA Leilani VisitID: [id number] Date: 12/02/2016 12/03/2016 22:52 2245 report called to JOSE Ramirez at [facility] (Electronically signed by Keely Tellez R.N. - 12/03/2016 22:52)
--- NOTE | 2016-12-03 15:07 | ED CLINICAL REPORT ---
Clinical Report - Physicians/Mid Levels [facility] [address] [place] [address] 12/02/2016 19:50 Patient: MOSES GRISSOM Time Seen: 20:07 Dec 02 2016. Arrived- By private vehicle. Not in custody. Historian- patient. CPT: ER phys charges level 5 (#[id number]). HISTORY OF PRESENT ILLNESS Chief Complaint: SUICIDAL ATTEMPT and (desire to be struck by a moving vehicle on the road.). This started just prior to arrival. No situational problems. (Patient earlier this afternoon departed in a steady gait to the wait room on her own accord, after denying to my self and RN about no SI/HI. She was in the lobby and we phoned her mom as well as transport for home, she was on the phone with such for 30 min then decided to walk out into the cross walk and stand, and was found by another RN off shift, stating she wanted to get hit by a car. She eloped prior to her complete lab work up, however was found to have negative cbc/ us. After her leave etoh returned and she is intoxicated.). Has had suicidal thoughts but been sleeping or not been depressed. The symptoms are described as moderate. REVIEW OF SYSTEMS No headache, chest pain, vomiting, diarrhea or fever. No sore throat or cough. All systems otherwise negative, except as recorded above. PAST HISTORY Medications: LaMICtal Oral. Adderall (15mg) Oral. Advair HFA Inhalation. Albuterol Sulfate Inhalation. Gabapentin Oral. Allergies: Abilify. Antihistmines. Antipsycotic medications. Thorazine. SOCIAL HISTORY Former smoker. Alcohol use. History of drug use: marijuana. Has place to stay. ADDITIONAL NOTES The nursing notes have been reviewed. PHYSICAL EXAM Vital Signs: 12/02/2016 19:50 BP: 162/100. HR: 142. RR: 28. O2 saturation: 99%. Temp: 97.7 F. Appearance: Alert. No acute distress. Appearance is normal. No apparent distress. Eyes: Pupils equal, round and reactive to light. Neck: Normal inspection. No lymphadenopathy. CVS: Normal heart rate and rhythm. Heart sounds normal. Respiratory: Breath sounds normal. Chest nontender. Abdomen: Soft. Back: No tenderness. Skin: Skin warm. Normal skin color. Extremities: Extremities exhibit normal ROM. Psych / Neuro: Speech normal. Cognition normal. Thought process normal. She expresses suicidal thoughts and a specific plan. Cranial nerves normal (as tested). No cerebellar findings. Normal gait. No motor deficit. No sensory deficit. Reflexes normal. LABS, X-RAYS, AND EKG Laboratory Tests: Urine Drug Screen: (KEON: 12/02/2016 18:32) ( MsgRcvd 12/02/2016 21:08) Final results Test Result Flag Units (Reference) AMPHETAMINE/METHAMPHETAMINE NEGATIVE (NEGATIVE) BARBITURATE NEGATIVE (NEGATIVE) BENZODIAZEPINE NEGATIVE (NEGATIVE) CANNABINOID NEGATIVE (NEGATIVE) COCAINE NEGATIVE (NEGATIVE) ECSTASY NEGATIVE (NEGATIVE) METHADONE NEGATIVE (NEGATIVE) OPIATE NEGATIVE (NEGATIVE) The urine drug screen is a qualitative screening test fordrug overdose and abuse. All screen results should beconsidered as presumptive.Drugs screened for are as follows:BenzodiazepinesCocaineAmphetamines/MetamphetaminesTHC (Tetrahydrocannabinol)OpiatesBarbituratesEcstasyMethadonePositive results are unconfirmed. For confirmation, notifythe lab for the specimen to be sent to the reference lab.All confirmations must be performed by a differentmethodology.The ingestion of natural herbal and plant productscontaining Ephedra/Ephedra metabolites can produce in urineone or more substances capable of cross reacting withamphetamine/methamphetamine immunoassays. These testsprovide a preliminary result only. A more specificalternative chemical method must be used to obtain aconfirmed analytical result. Ethyl Alcohol: (KEON: 12/02/2016 20:55) ( MsgRcvd 12/02/2016 21:26) Final results Test Result Flag Units (Reference) ETHYL ALCOHOL 179 H mg/dL (3-10) . PROGRESS AND PROCEDURES Course of Care: Pt tearful, at times anxious, she does not want to be home with the bugs, and at this time was in the road desiring to be struck by car, police did arrive and escorted her to the room and signed involuntary papers for her. She was placed in restraints as she desired to leave, and was unable to be cooperative. She is intoxicated, will await for her to sober. Previous labs completed on her earlier visit in the day. End of shift care transferred to DR. Stoll 23:00 ESW has bed at 2100 at [place] today. Assumed care at [address] Stoll and observed the patient during my shift. Pt was cooperative and at times anxious and required two doses of ativan 1 mg po. [facility] has called and delayed transport from 2100 to 0 and now 2229. Pt is stable . She is no longer intoxicated. Patient is stable. Patient/family counseled. Disposition: Transferred to [facility]. 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 No psychosis induced by the abuse of methamphetamines or cannabis. Suicide attempt. Substance abuse problems: abuse of alcohol. Suicide attempt. (Electronically signed by Rodolfo Pinedo MD 12/04/2016 11:41) Addenda for YULI GRISSOMILLA Leilani VisitID: [id number] Date: 12/02/2016 12/03/2016 22:52 2245 report called to JOSE Ramirez at [facility] (Electronically signed by Keely Tellez R.N. - 12/03/2016 22:52)
--- NOTE | 2016-12-03 15:08 | ED ORDER SUMMARY ---
..... Patient: MOSES GRISSOM OrderSheet [facility] VisitID: [id number] [address] [place] [address] 31y, F Registration Date/Time: 12/02/2016 ORDER SHEET Weight: 62.5 kg (stated) Allergies: Abilify, Antihistmines, Antipsycotic medications, Thorazine GENERAL ORDERS: Ethyl Alcohol Urgent (20:05 12/02/2016 EKoroleva P.A.-C) (Ack 20:12 [employer] ER Science Editor) (20:41 DDean R.N.) Urine Drug Screen Urgent (20:05 12/02/2016 EKoroleva P.A.-C) (Ack 20:12 [employer] ER Science Editor) (20:41 DDean R.N.) MEDICATION ORDERS: Zofran ODT PO 4 mg (NOW) (20:07 12/02/2016 EKoroleva P.A.-C) (21:01 DDean R.N.) Ativan PO 1 mg (NOW) (23:45 12/02/2016 DDean R.N. verbal order read back to Shama KELLER) (Ack 23:45 DDean R.N.) (11:41 DDean R.N.) Ativan PO 1 mg (HIGH ALERT MEDICATION, NOW) (03:17 12/03/2016 Shama KELLER) (3:59 RMarsden R.N.) Nicotine Topical 21 mg (NOW) (06:09 12/03/2016 RMarsden R.N. verbal order read back to Shama KELLER) (6:09 RMarsden R.N.) Verbal order read back and verified Zofran ODT PO 4 mg (NOW) (07:42 12/03/2016 LSullivan R.N. verbal order read back to Shama KELLER) (7:43 LSullivan R.N.) Tylenol PO 650 mg (NOW) (07:43 12/03/2016 LSullivan R.N. verbal order read back to Shama KELLER) (7:44 LSullivan R.N.) Ativan PO 1 mg (HIGH ALERT MEDICATION, NOW) (09:02 12/03/2016 Shama KELLER) (9:26 LSullivan R.N.) Ativan PO 1 mg (NOW) (13:02 12/03/2016 Ashley KELLER) (13:06 Jennyen R.N.) Ativan PO 1 mg (NOW) (17:38 12/03/2016 DDean R.N. verbal order read back to Ashley KELLER) (17:38 DDean R.N.) Zofran ODT PO 4 mg (NOW) (22:16 12/03/2016 DDean R.N. verbal order read back to Ashley KELLER) (22:18 DDean R.N.) Ativan PO 0.5 mg (NOW) (22:17 12/03/2016 DDeaseth R.N. verbal order read back to Ashley KELLER) (22:18 DDean R.N.) IV FLUIDS: ORDER SHEET NOTES: [Electronically signed by Keely Tellez R.N. (22:30 12/03/2016)] [Electronically signed by Rodolfo Pinedo MD (11:41 12/04/2016)] [Electronically locked/signed by Keely Tellez R.N. (22:30 12/03/2016)]
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
--- NOTE | 2016-12-03 15:08 | ED ORDER SUMMARY ---
..... Patient: MOSES GRISSOM OrderSheet [facility] VisitID: [id number] [address] [place] [address] 31y, F Registration Date/Time: 12/02/2016 ORDER SHEET Weight: 62.5 kg (stated) Allergies: Abilify, Antihistmines, Antipsycotic medications, Thorazine GENERAL ORDERS: Ethyl Alcohol Urgent (20:05 12/02/2016 EKoroleva P.A.-C) (Ack 20:12 [employer] ER Salvage Clerk) (20:41 DDean R.N.) Urine Drug Screen Urgent (20:05 12/02/2016 EKoroleva P.A.-C) (Ack 20:12 [employer] ER Salvage Clerk) (20:41 DDean R.N.) MEDICATION ORDERS: Zofran ODT PO 4 mg (NOW) (20:07 12/02/2016 EKoroleva P.A.-C) (21:01 DDean R.N.) Ativan PO 1 mg (NOW) (23:45 12/02/2016 DDean R.N. verbal order read back to Shama KELLER) (Ack 23:45 DDean R.N.) (11:41 DDean R.N.) Ativan PO 1 mg (HIGH ALERT MEDICATION, NOW) (03:17 12/03/2016 Shama KELLER) (3:59 RMarsden R.N.) Nicotine Topical 21 mg (NOW) (06:09 12/03/2016 RMarsden R.N. verbal order read back to Shama KELLER) (6:09 RMarsden R.N.) Verbal order read back and verified Zofran ODT PO 4 mg (NOW) (07:42 12/03/2016 LSullivan R.N. verbal order read back to Shama KELLER) (7:43 LSullivan R.N.) Tylenol PO 650 mg (NOW) (07:43 12/03/2016 LSullivan R.N. verbal order read back to Shama KELLER) (7:44 LSullivan R.N.) Ativan PO 1 mg (HIGH ALERT MEDICATION, NOW) (09:02 12/03/2016 Shama KELLER) (9:26 LSullivan R.N.) Ativan PO 1 mg (NOW) (13:02 12/03/2016 Ashley KELLER) (13:06 Jennyen R.N.) Ativan PO 1 mg (NOW) (17:38 12/03/2016 DDean R.N. verbal order read back to Ashley KELLER) (17:38 DDean R.N.) Zofran ODT PO 4 mg (NOW) (22:16 12/03/2016 DDean R.N. verbal order read back to Ashley KELLER) (22:18 DDean R.N.) Ativan PO 0.5 mg (NOW) (22:17 12/03/2016 DDeaseth R.N. verbal order read back to Ashley KELLER) (22:18 DDean R.N.) IV FLUIDS: ORDER SHEET NOTES: [Electronically signed by Keely Tellez R.N. (22:30 12/03/2016)] [Electronically signed by Rodolfo Pinedo MD (11:41 12/04/2016)] [Electronically locked/signed by Keely Tellez R.N. (22:30 12/03/2016)]
--- NOTE | 2016-12-04 11:41 | ED DISCHARGE INSTRUCTIONS ---
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 No psychosis induced by the abuse of methamphetamines or cannabis. Suicide attempt. Substance abuse problems: abuse of alcohol. Suicide attempt. ADDITIONAL INFORMATION Psychosis Psychosis is a mental health problem. It causes a person to be out of touch with reality and affects a persons daily functioning. There are different kinds of psychosis: Drug-induced (due to alcohol, methamphetamine, cocaine, LSD, PCP and others) Bipolar disorder (formerly called Manic-Depression) Depression Schizophrenia Dementia Symptoms of psychosis can include: Hearing voices that others do not hear Seeing things that others do not see Racing thoughts Lack of energy Feeling extremely fearful Treatment for psychosis depends on the cause. Medicine, with or without psychotherapy, is often used. Home Care: Be sure to take your medicine as directed even if you think you don't need it. Talk with your family about your feelings and thoughts. Follow Up with your counselor, therapist or psychiatrist as advised by our staff. To learn more about this illness and available resources, contact your local mental health organization. National [place] on Mental Illness: www.alicia.org Get Prompt Medical Attention if any of the following occur: Feeling like you want to harm yourself or another Feeling extremely depressed Feeling out of control or being controlled by others Unable to care for yourself Alcohol Intoxication Alcohol intoxication occurs when you drink alcohol faster than your liver can remove it from your system. Alcohol intoxication affects your judgment and coordination. Very high blood alcohol levels can cause coma, very slow breathing and even . If you drink alcohol every day, this may gradually cause permanent damage to your liver, brain, heart, pancreas and other organs. Alcohol use during may cause permanent damage to the growing baby. Home Care: Do not drink any more alcohol. DO NOT DRIVE until all effects of the alcohol have worn off. Get lots of rest over the next few days. Drink plenty of water and other non-alcoholic liquids. Try to eat regular meals. If you have been drinking heavily on a daily basis, you may go through alcohol withdrawl. This is also called the shakes or DTs. The usual symptoms last 3 to 4 days and may include nervousness, shakiness, nausea, sweating or sleeplessness. During this time, it is best that you stay with family or friends who can help and support you. You can also admit yourself to a residential detox program. If your symptoms are severe, contact your doctor for medicines to help. Follow Up: If alcohol is causing a problem in your life, these and other organizations can help you: Alcoholics Anonymous offers support through a self-help fellowship. There are no dues or fees. See the Yellow Pages and call for time and place of meetings. www.aa.org Al-Anoseth offers support to families of alcohol users. 838.859.9342 www.al-anon.org National [place] On Alcoholism And Drug Dependence 018-650-7112 www.ncadd.org There are also inpatient or residential alcohol detox programs. Check the Internet or phonebook Yellow Pages under Drug Abuse & Treatment Centers. Get Prompt Medical Attention if any of the following occur: there) You have been given the following additional information: Psychosis Alcohol Intoxication (Electronically signed by Rodolfo Pinedo MD 12/04/2016 11:41)
--- NOTE | 2016-12-04 11:41 | ED DISCHARGE INSTRUCTIONS ---
Patient: MOSES GRISSOM General Instructions 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 No psychosis induced by the abuse of methamphetamines or cannabis. Suicide attempt. Substance abuse problems: abuse of alcohol. Suicide attempt. ADDITIONAL INFORMATION Psychosis Psychosis is a mental health problem. It causes a person to be out of touch with reality and affects a persons daily functioning. There are different kinds of psychosis: Drug-induced (due to alcohol, methamphetamine, cocaine, LSD, PCP and others) Bipolar disorder (formerly called Manic-Depression) Depression Schizophrenia Dementia Symptoms of psychosis can include: Hearing voices that others do not hear Seeing things that others do not see Racing thoughts Lack of energy Feeling extremely fearful Treatment for psychosis depends on the cause. Medicine, with or without psychotherapy, is often used. Home Care: Be sure to take your medicine as directed even if you think you don't need it. Talk with your family about your feelings and thoughts. Follow Up with your counselor, therapist or psychiatrist as advised by our staff. To learn more about this illness and available resources, contact your local mental health organization. National [place] on Mental Illness: www.alicia.org Get Prompt Medical Attention if any of the following occur: Feeling like you want to harm yourself or another Feeling extremely depressed Feeling out of control or being controlled by others Unable to care for yourself Alcohol Intoxication Alcohol intoxication occurs when you drink alcohol faster than your liver can remove it from your system. Alcohol intoxication affects your judgment and coordination. Very high blood alcohol levels can cause coma, very slow breathing and even . If you drink alcohol every day, this may gradually cause permanent damage to your liver, brain, heart, pancreas and other organs. Alcohol use during may cause permanent damage to the growing baby. Home Care: Do not drink any more alcohol. DO NOT DRIVE until all effects of the alcohol have worn off. Get lots of rest over the next few days. Drink plenty of water and other non-alcoholic liquids. Try to eat regular meals. If you have been drinking heavily on a daily basis, you may go through alcohol withdrawl. This is also called the shakes or DTs. The usual symptoms last 3 to 4 days and may include nervousness, shakiness, nausea, sweating or sleeplessness. During this time, it is best that you stay with family or friends who can help and support you. You can also admit yourself to a residential detox program. If your symptoms are severe, contact your doctor for medicines to help. Follow Up: If alcohol is causing a problem in your life, these and other organizations can help you: Alcoholics Anonymous offers support through a self-help fellowship. There are no dues or fees. See the Yellow Pages and call for time and place of meetings. www.aa.org Al-Anoseth offers support to families of alcohol users. 340.820.8510 www.al-anon.org National [place] On Alcoholism And Drug Dependence 955-343-8786 www.ncadd.org There are also inpatient or residential alcohol detox programs. Check the Internet or phonebook Yellow Pages under Drug Abuse & Treatment Centers. Get Prompt Medical Attention if any of the following occur: there) You have been given the following additional information: Psychosis Alcohol Intoxication (Electronically signed by Rodolfo Pinedo MD 12/04/2016 11:41)
--- NOTE | 2016-12-04 11:41 | ED MED RECONCILIATION SUMMARY ---
Patient: MOSES GRISSOM Medication Reconciliation Report [facility] VisitID: [id number] [address] [place] [address] 31y, F Registration Date/Time: 12/02/2016 Weight: 62.5 kg Height/Length: 59 in. BMI: 27.9 ALLERGIES: Abilify, Antihistmines, Antipsycotic medications, Thorazine The patient's Home Medications are listed below: THE FOLLOWING MEDICATIONS NEED TO BE RECONCILED: Adderall (15mg) Oral Advair HFA Inhalation Albuterol Sulfate Inhalation Gabapentin Oral LaMICtal Oral The source(s) of the original Home Medication information: Not obtained. The following Medications were given to the patient in the Emergency Department: Zofran ODT [PO] PO 4 mg, administered: 12/02/2016 8:08:00 PM Ativan [PO] PO 1 mg, administered: 12/03/2016 3:49:00 AM NICOTINE [TOPICAL] Topical 21 mg, administered: 12/03/2016 6:04:00 AM Zofran ODT [PO] PO 4 mg, administered: 12/03/2016 7:40:00 AM Tylenol [PO] PO 650 mg, administered: 12/03/2016 7:44:00 AM Ativan [PO] PO 1 mg, administered: 12/03/2016 9:26:00 AM Ativan [PO] PO 1 mg, administered: 12/02/2016 11:45:00 PM Ativan [PO] PO 1 mg, administered: 12/03/2016 1:06:00 PM Ativan [PO] PO 1 mg, administered: 12/03/2016 5:15:00 PM Ativan [PO] PO 0.5 mg, administered: 12/03/2016 10:00:00 PM Zofran ODT [PO] PO 4 mg, administered: 12/03/2016 9:43:00 PM The following Medications were prescribed to the patient: None.
--- NOTE | 2016-12-04 11:41 | ED MED RECONCILIATION SUMMARY ---
Patient: MOSES GRISSOM Medication Reconciliation Report [facility] VisitID: [id number] [address] [place] [address] 31y, F Registration Date/Time: 12/02/2016 Weight: 62.5 kg Height/Length: 59 in. BMI: 27.9 ALLERGIES: Abilify, Antihistmines, Antipsycotic medications, Thorazine The patient's Home Medications are listed below: THE FOLLOWING MEDICATIONS NEED TO BE RECONCILED: Adderall (15mg) Oral Advair HFA Inhalation Albuterol Sulfate Inhalation Gabapentin Oral LaMICtal Oral The source(s) of the original Home Medication information: Not obtained. The following Medications were given to the patient in the Emergency Department: Zofran ODT [PO] PO 4 mg, administered: 12/02/2016 8:08:00 PM Ativan [PO] PO 1 mg, administered: 12/03/2016 3:49:00 AM NICOTINE [TOPICAL] Topical 21 mg, administered: 12/03/2016 6:04:00 AM Zofran ODT [PO] PO 4 mg, administered: 12/03/2016 7:40:00 AM Tylenol [PO] PO 650 mg, administered: 12/03/2016 7:44:00 AM Ativan [PO] PO 1 mg, administered: 12/03/2016 9:26:00 AM Ativan [PO] PO 1 mg, administered: 12/02/2016 11:45:00 PM Ativan [PO] PO 1 mg, administered: 12/03/2016 1:06:00 PM Ativan [PO] PO 1 mg, administered: 12/03/2016 5:15:00 PM Ativan [PO] PO 0.5 mg, administered: 12/03/2016 10:00:00 PM Zofran ODT [PO] PO 4 mg, administered: 12/03/2016 9:43:00 PM The following Medications were prescribed to the patient: None.
--- NOTE | 2016-12-04 11:41 | ED MAR SUMMARY ---
..... Medication Administration Record [facility] [address] [place] [address] Patient: MOSES GRISSOM Visit ID: [id number] 31y, F Weight: 62.5 kg Height/Length: 59 in BMI: 27.9 ALLERGIES: Abilify, Antihistmines, Antipsycotic medications, Thorazine Given 20:08 12/02/2016 Keely Tellez R.N. Medication Administered: ZOFRAN ODT [PO] (ONDANSETRON), Dose: 4 mg Oral Disintegrating Tablets PO. Medication Ordered: Zofran ODT PO 4 mg (NOW). Given 23:45 12/02/2016 Keely Tellez R.N. Medication Administered: ATIVAN [PO] (LORAZEPAM), Dose: 1 mg Tablets PO. Medication Ordered: Ativan PO 1 mg (NOW). Given 03:49 12/03/2016 Wen Rubio R.N. Medication Administered: ATIVAN [PO] (LORAZEPAM), Dose: 1 mg Tablets PO. Medication Ordered: Ativan PO 1 mg (HIGH ALERT MEDICATION, NOW). Given 06:04 12/03/2016 Wen Rubio R.N. Medication Administered: NICOTINE [TOPICAL], Dose: 21 mg Patch/Pad Topical. Medication Ordered: Nicotine Topical 21 mg (NOW). Given 07:40 12/03/2016 Codi Arreola R.N. Medication Administered: ZOFRAN ODT [PO] (ONDANSETRON), Dose: 4 mg PO. Medication Ordered: Zofran ODT PO 4 mg (NOW). Given 07:44 12/03/2016 Codi Arreola R.N. Medication Administered: TYLENOL [PO] (ACETAMINOPHEN), Dose: 650 mg PO. Medication Ordered: Tylenol PO 650 mg (NOW). Given 09:26 12/03/2016 Codi Arreola R.N. Medication Administered: ATIVAN [PO] (LORAZEPAM), Dose: 1 mg PO. Medication Ordered: Ativan PO 1 mg (HIGH ALERT MEDICATION, NOW). Given 13:06 12/03/2016 Alicia Rodríguez R.N. Medication Administered: ATIVAN [PO] (LORAZEPAM), Dose: 1 mg Tablets PO. Medication Ordered: Ativan PO 1 mg (NOW). Given 17:15 12/03/2016 Keely Tellez RMark. Medication Administered: ATIVAN [PO] (LORAZEPAM), Dose: 1 mg Tablets PO. Medication Ordered: Ativan PO 1 mg (NOW). Given 21:43 12/03/2016 Keely Tellez RChloeN. Medication Administered: ZOFRAN ODT [PO] (ONDANSETRON), Dose: 4 mg Oral Disintegrating Tablets PO. Medication Ordered: Zofran ODT PO 4 mg (NOW). Given 22:00 12/03/2016 Keely Tellez RChloeN. Medication Administered: ATIVAN [PO] (LORAZEPAM), Dose: 0.5 mg Tablets PO. Medication Ordered: Ativan PO 0.5 mg (NOW).
--- NOTE | 2016-12-04 11:41 | ED MAR SUMMARY ---
..... Medication Administration Record [facility] [address] [place] [address] Patient: MOSES GRISSOM Visit ID: [id number] 31y, F Weight: 62.5 kg Height/Length: 59 in BMI: 27.9 ALLERGIES: Abilify, Antihistmines, Antipsycotic medications, Thorazine Given 20:08 12/02/2016 Keely Tellez R.N. Medication Administered: ZOFRAN ODT [PO] (ONDANSETRON), Dose: 4 mg Oral Disintegrating Tablets PO. Medication Ordered: Zofran ODT PO 4 mg (NOW). Given 23:45 12/02/2016 Keely Tellez R.N. Medication Administered: ATIVAN [PO] (LORAZEPAM), Dose: 1 mg Tablets PO. Medication Ordered: Ativan PO 1 mg (NOW). Given 03:49 12/03/2016 Wen Rubio R.N. Medication Administered: ATIVAN [PO] (LORAZEPAM), Dose: 1 mg Tablets PO. Medication Ordered: Ativan PO 1 mg (HIGH ALERT MEDICATION, NOW). Given 06:04 12/03/2016 Wen Rubio R.N. Medication Administered: NICOTINE [TOPICAL], Dose: 21 mg Patch/Pad Topical. Medication Ordered: Nicotine Topical 21 mg (NOW). Given 07:40 12/03/2016 Codi Arreola R.N. Medication Administered: ZOFRAN ODT [PO] (ONDANSETRON), Dose: 4 mg PO. Medication Ordered: Zofran ODT PO 4 mg (NOW). Given 07:44 12/03/2016 Codi Arreola R.N. Medication Administered: TYLENOL [PO] (ACETAMINOPHEN), Dose: 650 mg PO. Medication Ordered: Tylenol PO 650 mg (NOW). Given 09:26 12/03/2016 Codi Arreola R.N. Medication Administered: ATIVAN [PO] (LORAZEPAM), Dose: 1 mg PO. Medication Ordered: Ativan PO 1 mg (HIGH ALERT MEDICATION, NOW). Given 13:06 12/03/2016 Alicia Rodríguez R.N. Medication Administered: ATIVAN [PO] (LORAZEPAM), Dose: 1 mg Tablets PO. Medication Ordered: Ativan PO 1 mg (NOW). Given 17:15 12/03/2016 Keely Tellez RMark. Medication Administered: ATIVAN [PO] (LORAZEPAM), Dose: 1 mg Tablets PO. Medication Ordered: Ativan PO 1 mg (NOW). Given 21:43 12/03/2016 Keely Tellez RChloeN. Medication Administered: ZOFRAN ODT [PO] (ONDANSETRON), Dose: 4 mg Oral Disintegrating Tablets PO. Medication Ordered: Zofran ODT PO 4 mg (NOW). Given 22:00 12/03/2016 Keely Tellez RChloeN. Medication Administered: ATIVAN [PO] (LORAZEPAM), Dose: 0.5 mg Tablets PO. Medication Ordered: Ativan PO 0.5 mg (NOW).
== END 2016-12-02 22:10 ==
LOC: ED SRH 19:48
DX: F10.14 Alcohol abuse with alcohol-induced mood disorder (principal); F10.150 Alcohol abuse with alcohol-induced psychotic disorder with delusions; F10.151 Alcohol abuse with alcohol-induced psychotic disorder with hallucinations; F31.9 Bipolar disorder, unspecified; Y90.6 Blood alcohol level of 120-199 mg/100 ml; J45.909 Unspecified asthma, uncomplicated
CPT/HCPCS: 90074; 92010; 92760; 92761; 92762; 92763; 92764; 92765; 92766; 92767